=== PATIENT | male | born 1975 | race Caucasian/White ===

== ENCOUNTER 2016-06-01 18:21 | Emergency (ER) | payer MEDICAID, OTHER ==
[~2016-06-01] VITALS: Ht 162.6 cm; Wt 98.0 kg
[2016-06-01 18:47] VITALS: Ht 162.6 cm; Wt 98.0 kg
[2016-06-01] MEDS ORDERED: FLUORESCEIN STRIP RIGHT EYE ONE (19:30)
[2016-06-01] MEDS ORDERED: TETRACAINE 0.5% 4 ML OPH RIGHT EYE ONE (19:30)
[2016-06-01] MEDS ORDERED: NAPH15DR OP (19:56)
[2016-06-01] MEDS ORDERED: ACET500C5 PO (19:56)
[2016-06-01] MEDS ORDERED: POLY10DR19 RIGHT EYE (19:56)
--- NOTE | 2016-06-01 20:25 | ERD ---
ER Documentation Chief Complaint Date/Time DATE: 06/01/16 TIME: 20:18 Chief Complaint right eye pain w/ redness x 2 days HPI 40-year-old male with no significant past medical history presents the ED complaining of right eye pain and redness that started 2 days ago. States that it is slightly itchy. States that he has been taking Motrin without relief of his pain. States that he has been rubbing his eyes. Denies any cough, rhinorrhea, fever, chest pain, shortness of breath, wheezing, abdominal pain, nausea, vomiting, diarrhea. Denies any blurred vision, photophobia, headache, weakness, photophobia, vision loss. Denies any eye trauma. Denies any foreign body sensation or getting anything in his eyes. ROS All systems reviewed and are negative except as per history of present illness. Medications Home Meds Active Scripts Acetaminophen* (Tylophen*) 500 Mg Capsule, 1 CAP PO Q6H Y for PAIN AND OR ELEVATED TEMP, #20 CAP Prov:MIL MANRIQUEZ PA-C 06/01/16 Naphazoline Hcl/Phenir Mal (Naphcon-A Eye Drops) 15 Ml Drops, 15 ML OP BID, #1 BOTTLE Prov:MIL MANRIQUEZ PA-C 06/01/16 Polymyxin B Sulfate-TMP* (Polymyxin B-TMP Eye Drops*) 10 Ml Drops, 1 DROP RIGHT EYE QID for 7 Days, EA Prov:MIL MANRIQUEZ PA-C 06/01/16 Allergies Allergies: Coded Allergies: No Known Allergy (Unverified , 06/01/16) PMhx/Soc Medical and Surgical Hx: pt denies Medical Hx, pt denies Surgical Hx History of Surgery: No Anesthesia Reaction: No Hx Neurological Disorder: No Hx Respiratory Disorders: No Hx Cardiac Disorders: No Hx Psychiatric Problems: No Hx Miscellaneous Medical Probl: No (DENIES MEDICAL AND SURGICAL HX.) Hx Alcohol Use: No Hx Substance Use: No Hx Tobacco Use: No Smoking Status: Never smoker Physical Exam Vitals Vital Signs Date Time Temp Pulse Resp B/P Pulse Ox O2 Delivery O2 Flow Rate FiO2 06/01/16 18:47 97.8 87 20 139/79 100 Physical Exam Const: Krm-apr-akhjvgpyq, well-nourished. In no acute distress. Head: Atraumatic, normocephalic Eyes: Right injected conjunctivae. Left conjunctiva without injection. No purulent discharge. PERRLA. EOMI ENT: Normal external ear. Ear canal without erythema. Tympanic membrane pearly chua without effusion or bulging. Nasal canal clear with normal turbinates. Moist oropharynx without tonsillar exudates. Non-erythematous pharynx. Uvula midline. No drooling. No trismus. Neck: No cervical midline tenderness. Full range of motion. No meningismus. No cervical lymphadenopathy. No JVD. Resp: Clear to auscultation bilaterally. No wheezing, rhonchi, rales, or crackles. No accessory muscle use. No retractions. Cardio: Regular rate and rhythm. No murmurs, rubs or gallops. Abd: Soft, non tender, non distended. Normal bowel sounds. No palpable masses. No rebound tenderness. No guarding. Negative McBurney's Point. Negative Lopez's Sign. Skin: Normal skin turgor. No petechiae or rashes Back: No midline tenderness. No CVA tenderness. Ext: No cyanosis, or edema. Distal pulses intact bilaterally. Neur: Awake and alert. Normal gait. Normal coordination. Cranial Nerves II- VII intact. Normal finger to nose. Muscle strength 5/5. Sensation intact. Psych: Normal Mood and Affect Results 24 hrs Current Medications Medications (Trade) Dose Ordered Sig/Emi Route PRN Reason Start Time Stop Time Status Last Admin Dose Admin Tetracaine HCl (Tetracaine 0.5% Steri-Unit Gianna) 1 drop ONCE ONCE RIGHT EYE 06/01/16 19:30 06/01/16 19:31 DC Fluorescein Sodium (Hdcue-K-Pxjiq) 1 strip ONCE ONCE RIGHT EYE 06/01/16 19:30 06/01/16 19:31 DC Procedures/MDM This is a 40-year-old male with no significant past medical history presents the ED complaining of right eye pain and redness that started 2 days ago. Patient is afebrile nontoxic appearing. Patient has normal vital signs. A visual acuity, fluorescein stain with Ortiz lamp, Rebel-Pen pressure reading was performed here in the ED to further evaluate patient. Eye Exam w/ Wood's lamp: Visual Acuity: Left 20/25 right 20/25 bilateral 20/20 Visual Denney: Intact in all four quadrants bilaterally Lac ducts/glands: No swelling Lids w/ evertion: Normal, no foreign body Conj/Weston: Clear, negative Fluorescein/Yosef's Anterior Chamber: Clear Tonopen readings: [Left 20 mmHg right 18 mmHg Retina exam: No obvious abnormality Patient's ocular symptoms have stabilized while they have been evaluated in the department and are appropriate for outpatient work up. Patient's symptoms could likely be due to conjunctivitis however patient was strictly instructed to follow-up with an harness cutter within 24 hours. Low suspicion for ruptured globe, retinal detachment, periorbital cellulitis, acute angle closure glaucoma, deep space infection, iritis, traumatic hyphema, conjunctivitis, subconjunctival hemorrhage, corneal abrasion, corneal ulcer, pterygium, hypopyon, blepharitis, hordeolum, chalazion, or other emergent conditions. This case was discussed with my supervising physician, Dr. Watters agreed with the management and discharge plan. Discharge medications: Tylenol, Naphcon eyedrops, Polytrim Follow up with primary care physician in 1-2 days. Instructed patient to return to the ED sooner for any worsening symptoms. Patient's questions were answered. Patient understood and agreed with discharge plan. Patient discharged stable. Departure Diagnosis: Primary Impression: Pain, eye, right Condition: Stable Patient Instructions: Understanding Red Eye: Causes Referrals: COMMUNITY CLINICS YOU HAVE RECEIVED A MEDICAL SCREENING EXAM AND THE RESULTS INDICATE THAT YOU DO NOT HAVE A CONDITION THAT REQUIRES URGENT TREATMENT IN THE EMERGENCY DEPARTMENT. FURTHER EVALUATION AND TREATMENT OF YOUR CONDITION CAN WAIT UNTIL YOU ARE SEEN IN YOUR DOCTORS OFFICE WITHIN THE NEXT 1-2 DAYS. IT IS YOUR RESPONSIBILITY TO MAKE AN APPOINTMENT FOR FOLOW-UP CARE. IF YOU HAVE A PRIMARY DOCTOR --you should call your primary doctor and schedule an appointment IF YOU DO NOT HAVE A PRIMARY DOCTOR YOU CAN CALL OUR PHYSICIAN REFERRAL HOTLINE AT IF YOU CAN NOT AFFORD TO SEE A PHYSICIAN YOU CAN CHOSE FROM THE FOLLOWING [facility] [address] [facility] [address] [facility] [address] [facility] [address] [facility] [address] [facility]. [facility] [address] [facility]. [facility] YOU HAVE RECEIVED A MEDICAL SCREENING EXAM AND THE RESULTS INDICATE THAT YOU DO NOT HAVE A CONDITION THAT REQUIRES URGENT TREATMENT IN THE EMERGENCY DEPARTMENT. FURTHER EVALUATION AND TREATMENT OF YOUR CONDITION CAN WAIT UNTIL YOU ARE SEEN IN YOUR DOCTORS OFFICE WITHIN THE NEXT 1-2 DAYS. IT IS YOUR RESPONSIBILITY TO MAKE AN APPOINTMENT FOR FOLOW-UP CARE. IF YOU HAVE A PRIMARY DOCTOR --you should call your primary doctor and schedule and appointment IF YOU DO NOT HAVE A PRIMARY DOCTOR YOU CAN CALL OUR PHYSICIAN REFERRAL HOTLINE AT . IF YOU CAN NOT AFFORD TO SEE A PHYSICIAN YOU CAN CHOSE FROM THE FOLLOWING [facility] INSTITUTIONS: [facility] [address] [place] [address] [facility] [address] [place] [address] [facility] + [facility] [address] [place] [address] [facility] Hours: Mon - Fri 9:00 AM - 5:00 PM Additional Instructions: Seguimiento con [employer] dentro de 24 horas. Regrese a estas instalaciones si no se mejora joel esperbamos o joel le dijimos. MIL MANRIQUEZ PA-C Jun 01, 2016 20:25
== END 2016-06-01 21:05 | disposition home or self-care (01) ==
LOC: FTE 18:21
DX: H57.11 Ocular pain, right eye (principal)
CPT/HCPCS: Z7502; Z7610; 99283

== ENCOUNTER 2016-07-20 01:16 | Emergency (ER) | payer MEDICAID ==
[~2016-07-20] VITALS: Ht 177.8 cm; Wt 102.0 kg
[~2016-07-20 01:16] MED LIST: ACET500C5 PO; NAPH15DR OP; POLY10DR19 RIGHT EYE
[2016-07-20 01:21] VITALS: Ht 177.8 cm; Wt 102.0 kg
--- NOTE | 2016-07-20 01:41 | ERA ---
ER Documentation Chief Complaint Date/Time DATE: 07/20/16 TIME: 01:41 Chief Complaint CHEST PRESSURE HPI The patient is a 40-year-old male, presenting to the ER because of substernal chest pressure for 1 day. He has similar symptoms previously, the chest pressure is worse with movement. He denies chest pain with exertion or vomiting or diaphoresis. He denies fever, chills, neck pain, abdominal pain, vomiting, dysuria, diarrhea. He does not smoke nor drink or use illicit drug Past medical history/surgical history: None ROS All systems reviewed and are negative except as per history of present illness. Medications Home Meds Active Scripts Acetaminophen* (Tylophen*) 500 Mg Capsule, 1 CAP PO Q6H Y for PAIN AND OR ELEVATED TEMP, #20 CAP Prov:MIL MANRIQUEZ PA-C 06/01/16 Naphazoline Hcl/Phenir Mal (Naphcon-A Eye Drops) 15 Ml Drops, 15 ML OP BID, #1 BOTTLE Prov:MIL MANRIQUEZ PA-C 06/01/16 Polymyxin B Sulfate-TMP* (Polymyxin B-TMP Eye Drops*) 10 Ml Drops, 1 DROP RIGHT EYE QID for 7 Days, EA Prov:MIL MANRIQUEZ PA-C 06/01/16 Allergies Allergies: Coded Allergies: No Known Allergy (Unverified , 06/01/16) PMhx/Soc History of Surgery: No Anesthesia Reaction: No Hx Neurological Disorder: No Hx Respiratory Disorders: No Hx Cardiac Disorders: No Hx Psychiatric Problems: No Hx Miscellaneous Medical Probl: No (DENIES MEDICAL AND SURGICAL HX.) Hx Alcohol Use: No Hx Substance Use: No Hx Tobacco Use: No Physical Exam Vitals Vital Signs Date Time Temp Pulse Resp B/P Pulse Ox O2 Delivery O2 Flow Rate FiO2 07/20/16 04:00 64 12 115/81 98 Room Air 07/20/16 03:00 68 16 113/76 100 Room Air 07/20/16 01:59 71 19 118/68 100 Room Air 07/20/16 01:21 97.0 67 18 152/97 98 Physical Exam Const: No acute distress. Head: Atraumatic. Eyes: Normal Conjunctiva. ENT: Normal External Ears, Nose and Mouth. Neck: Full range of motion. No meningismus. Resp: Clear to auscultation bilaterally. Cardio: Regular rate and rhythm, no murmurs. Abd: Soft, non distended, normal bowel sounds, non tender. Skin: No petechiae or rashes. Back: No midline or flank tenderness. Ext: No cyanosis, or edema. Neur: Awake and alert. No focal deficit Psych: Normal Mood and Affect. Result Diagram: 07/20/16 0200 07/20/16 0200 Results 24 hrs Laboratory Tests Test 07/20/16 02:00 07/20/16 02:10 White Blood Count 7.510^3/ul Red Blood Count 5.2110^6/ul Hemoglobin 16.0g/dl Hematocrit 45.5% Mean Corpuscular Volume 87.3fl Mean Corpuscular Hemoglobin 30.7pg Mean Corpuscular Hemoglobin Concent 35.2g/dl Red Cell Distribution Width 11.9% Platelet Count 54915^3/UL Mean Platelet Volume 9.9fl Neutrophils % 47.9% Lymphocytes % 39.5% Monocytes % 8.5% Eosinophils % 3.3% Basophils % 0.4% Nucleated Red Blood Cells % 0.0/100WBC Neutrophils # 3.610^3/ul Lymphocytes # 3.010^3/ul Monocytes # 0.610^3/ul Eosinophils # 0.310^3/ul Basophils # 0.010^3/ul Nucleated Red Blood Cells # 0.010^3/ul Prothrombin Time 11.9Sec Prothrombin Time Ratio 0.9 INR International Normalized Ratio 0.88 Activated Partial Thromboplast Time 30.6Sec D-Dimer 285.86ng/ml D-Dimer Comment Sodium Level 139mmol/L Potassium Level 3.4mmol/L Chloride Level 103mmol/L Carbon Dioxide Level 25mmol/L Anion Gap 14 Blood Urea Nitrogen 10mg/dl Creatinine 0.68mg/dl Glucose Level 106mg/dl Calcium Level 8.9mg/dl Troponin I < 0.012ng/ml Ethyl Alcohol Level < 10.0mg/dl Urine Opiates Screen NEGATIVE Urine Barbiturates NEGATIVE Urine Amphetamines Screen NEGATIVE Urine Benzodiazepines Screen NEGATIVE Urine Cocaine Screen NEGATIVE Urine Cannabinoids NEGATIVE Current Medications Medications (Trade) Dose Ordered Sig/Emi Route PRN Reason Start Time Stop Time Status Last Admin Dose Admin Ketorolac Tromethamine (Toradol) 30 mg ONCE STAT IV 07/20/16 01:45 07/20/16 01:47 DC 07/20/16 02:07 Pantoprazole (Protonix Iv) 40 mg ONCE ONCE IV 07/20/16 02:00 07/20/16 02:01 DC 07/20/16 02:07 Potassium Chloride (Klor-Con 20) 20 meq ONCE ONCE PO 07/20/16 03:32 07/20/16 03:33 DC Procedures/[place] [address] Radiology Main Line: [phone] DIAGNOSTIC IMAGING REPORT Patient: MICHELLE PORRAS : 1975 Age: 40 Sex: M MR #: [id number] DOS: 07/20/16 0145 Ordering MD: AMISHA AG MD Location: E/R Room/Bed: PROCEDURE: XR Chest. CLINICAL INDICATION: Chest Pain. TECHNIQUE: Portable single view of the chest COMPARISON: None. FINDINGS: The cardiomediastinal silhouette appears within normal limits. The lungs are clear and no pleural effusion or significant edema is seen. No bony abnormality is seen. IMPRESSION: No definite acute pulmonary disease. RPTAT: HLBE Physician Sheila Date Time Electronically viewed and signed by Yola Cruz Physician on 07/20/2016 03 :10 LE/ CC: AMISHA AG MD EKG: At 1:36 AM read by emergency physician Rate/Rhythm: Normal Sinus Rhythm 71 beats/min QRS, ST, T-waves: No ST elevation, no T inversion Impression: Normal EKG EKG: At 2:07 AM read by emergency physician Rate/Rhythm: Normal Sinus Rhythm 72 beats/min QRS, ST, T-waves: No ST elevation, no T inversion Impression: Normal EKG MEDICAL MAKING DECISION: The patient is a 40-year-old male, presenting to the ER because of acute chest pain of unclear etiology. He was treated with Toradol 30 minute IV and Protonix 40 mg IV with good response The differential diagnoses considered include but are not limited to acute coronary syndrome, acute myocardial infarction, pericarditis, pulmonary embolism , aortic dissection, pneumonia, pleural effusion, pneumothorax, GERD, chest wall pain. Departure Diagnosis: Primary Impression: Chest pain Condition: Good Comments The patient presents with chest pain and I considered pulmonary embolism, aortic dissection, pneumothorax among other diagnoses. Evaluation for acute coronary syndrome was performed. The HEART score (www.mdcalc.com) was utilized for risk stratification and found to be < = 3. Repeat EKG and troponin @ 3 hours were unchanged. Based on this evaluation the patients risk of major adverse cardiac events is <1%. Shared decision making occurred with patient and the decision has been made to discharge the patient for outpatient evaluation and functional study within 72 hours. AMISHA AG MD July 20, 2016 01:41
[2016-07-20] MEDS ORDERED: KETOROLAC 30 MG INJ IV STA (01:45)
[2016-07-20] MEDS ORDERED: PANTOPRAZOLE 40 MG INJ IV ONE (02:00)
[2016-07-20 02:17] LABS: ADD SCAN DIFF NO
[2016-07-20 02:21] LABS: BASOPHILS % 0.4 % (0.0-2.0); EOSINOPHILS # 0.3 10^3/ul (0.0-0.5); EOSINOPHILS % 3.3 % (0.0-7.0); HEMATOCRIT 45.5 % (42.0-52.0); LYMPHOCYTES % 39.5 % (15.0-51.0); MEAN CORPUSCULAR HEMOGLOBIN 30.7 pg (29.0-33.0); MEAN CORPUSCULAR HGB CONC 35.2 g/dl (32.0-37.0); MEAN CORPUSCULAR VOLUME 87.3 fl (82.0-101.0); MEAN PLATELET VOLUME 9.9 fl (7.4-10.4); MONOCYTE # 0.6 10^3/ul (0.3-0.9); MONOCYTES % 8.5 % (0.0-11.0); NEUTROPHIL # 3.6 10^3/ul (1.6-7.5); NEUTROPHILS % 47.9 % (39.0-77.0); PLATELET COUNT 249 10^3/UL (140-415); RED BLOOD COUNT 5.21 10^6/ul (4.70-6.10); RED CELL DISTRIBUTION WIDTH 11.9 % (11.5-14.5); WHITE BLOOD COUNT 7.5 10^3/ul (4.8-10.8)
[2016-07-20 02:38] LABS: INR 0.88; PROTIME 11.9 Sec (12.2-14.2); PT RATIO 0.9
[2016-07-20 02:39] LABS: CHLORIDE 103 mmol/L (97-110); PARTIAL THROMBOPLASTIN TIME 30.6 Sec (25.0-35.0); POTASSIUM 3.4 mmol/L (3.5-5.1); SODIUM 139 mmol/L (135-144)
[2016-07-20 02:41] LABS: D-DIMER 285.86 ng/ml (<460)
[2016-07-20 02:42] LABS: ANION GAP 14 (8-16); CARBON DIOXIDE 25 mmol/L (21-31); CREATININE 0.68 mg/dl (0.61-1.24)
[2016-07-20 02:43] LABS: BLOOD UREA NITROGEN 10 mg/dl (7-20); CALCIUM 8.9 mg/dl (8.4-10.2); GLUCOSE 106 mg/dl (70-220)
[2016-07-20 02:48] LABS: ETHANOL < 10.0 mg/dl
[2016-07-20 02:55] LABS: TROPONIN-I < 0.012 ng/ml (0.00-0.12)
--- NOTE | 2016-07-20 03:11 | RADRPT ---
PROCEDURE: XR Chest. CLINICAL INDICATION: Chest Pain. TECHNIQUE: Portable single view of the chest COMPARISON: None. FINDINGS: The cardiomediastinal silhouette appears within normal limits. The lungs are clear and no pleural e ffusion or significant edema is seen. No bony abnormality is seen. IMPRESSION: No definite acute pulmonary disease. RPTAT: HLBE Yola Cruz Physician Date Time Electronically viewed and signed by Yola Cruz Physician on 07/20/2016 03:10 LE/
[2016-07-20 03:13] LABS: BARBITURATES NEGATIVE (NEGATIVE); CANNABINOIDS NEGATIVE (NEGATIVE); COCAINE NEGATIVE (NEGATIVE); OPIATES NEGATIVE (NEGATIVE)
[2016-07-20 03:28] LABS: BENZODIAZEPINES NEGATIVE (NEGATIVE)
[2016-07-20] MEDS ORDERED: POTASSIUM CHLORIDE (SR) 20 MEQ TAB PO ONE (03:32)
[2016-07-20] MEDS ORDERED: IBUP-1542 PO (05:12)
[2016-07-20 05:34] VITALS: BP 101/68; PULSE 74; RESP 17
== END 2016-07-20 05:48 | disposition home or self-care (01) ==
LOC: E/R 01:16
DX: R07.2 Precordial pain (principal); R40.2252 Coma scale, best verbal response, oriented, at arrival to emergency department; R07.9 Chest pain, unspecified; R40.2142 Coma scale, eyes open, spontaneous, at arrival to emergency department; R40.2362 Coma scale, best motor response, obeys commands, at arrival to emergency department
CPT/HCPCS: 71010; 80048; 80306; 80307; 84484; 85025; 85378; 85610; 85730; 93005; C9113; J1885; Z7610; 36415; 96374; 96375

== ENCOUNTER 2016-08-17 18:05 | Emergency (ER) | payer MEDICAID ==
[~2016-08-17] VITALS: Ht 167.6 cm; Wt 99.5 kg
[~2016-08-17 18:05] MED LIST changes: +IBUP-1542 PO
[2016-08-17 18:16] VITALS: Ht 167.6 cm; Wt 99.5 kg
--- NOTE | 2016-08-17 18:43 | ERD ---
ER Documentation Chief Complaint Date/Time DATE: 08/17/16 TIME: 18:43 Chief Complaint Complains of fever x 3 weeks HPI 41-year-old male who presented emergency department for productive cough and intermittent fever for about 3 weeks. He complains of right upper back pain that is described as achy nonradiating. Stated that his right upper back pain is worse whenever he cough. Denies headache, loss of consciousness, dizziness, blurry vision, changes in vision, photophobia, facial pain, ear pain, throat pain, difficulty swallowing, neck pain, shoulder pain, chest pain, hemoptysis, abdominal pain, loss of appetite, nausea, vomiting, hematochezia, diarrhea, constipation, urinary symptoms, bladder and bowel incontinences, extremity weakness, extremity tenderness, numbness or tingling sensation, difficulty walking, recent travel, recent exposure to illness, recent antibiotic use in the last 3 months. Allergy: NKDA. PMH: Denies. Medications: Denies. Surgery: Denies. Family history: Denies. Primary Social History: Denies. Denies smoking, use of alcohol, use of illegal drugs. ROS All systems reviewed and are negative except as per history of present illness. Medications Home Meds Active Scripts Albuterol Sulfate* (Proair HFA*) 8.5 Gm Hfa.aer.ad, 2 PUFF INH Q4, #1 INHALER Prov:JASMINILATREEULISES F 08/17/16 Ibuprofen* (Motrin*) 800 Mg Tab, 800 MG PO Q8 Y for PAIN AND OR ELEVATED TEMP, # 30 TAB Prov:JASMINILATREEFRANCESCAPA F 08/17/16 Acetaminophen* (Tylophen*) 500 Mg Capsule, 1 CAP PO Q6H Y for PAIN AND OR ELEVATED TEMP, #20 CAP Prov:PASILABANULISES F 08/17/16 Azithromycin* (Zithromax*) 250 Mg Tablet, 250 MG PO .ZPACK DIRECTED, #6 TAB TAKE 500 MG (2 TABS) THE FIRST DAY THEN 250 MG (1 TAB) DAYS 2-5 Prov:JASMINILAFRANCESCA LEAVITTAR F 08/17/16 Ibuprofen* (Motrin*) 600 Mg Tab, 600 MG PO Q6H Y for PAIN AND OR ELEVATED TEMP, #30 TAB Prov:AMISHA AG MD 07/20/16 Acetaminophen* (Tylophen*) 500 Mg Capsule, 1 CAP PO Q6H Y for PAIN AND OR ELEVATED TEMP, #20 CAP Prov:MIL MANRIQUEZ JB 06/01/16 Naphazoline Hcl/Phenir Mal (Naphcon-A Eye Drops) 15 Ml Drops, 15 ML OP BID, #1 BOTTLE Prov:MIL MANRIQUEZ JB 06/01/16 Polymyxin B Sulfate-TMP* (Polymyxin B-TMP Eye Drops*) 10 Ml Drops, 1 DROP RIGHT EYE QID for 7 Days, EA Prov:MIL MANRIQUEZ JB 06/01/16 Allergies Allergies: Coded Allergies: No Known Allergy (Unverified , 06/01/16) PMhx/Soc Medical and Surgical Hx: pt denies Medical Hx, pt denies Surgical Hx History of Surgery: No Anesthesia Reaction: No Hx Neurological Disorder: No Hx Respiratory Disorders: No Hx Cardiac Disorders: No Hx Psychiatric Problems: No Hx Miscellaneous Medical Probl: No Hx Alcohol Use: No Hx Substance Use: No Hx Tobacco Use: No (quit) Smoking Status: Former smoker FmHx Family History: coronary disease Physical Exam Vitals Vital Signs Date Time Temp Pulse Resp B/P Pulse Ox O2 Delivery O2 Flow Rate FiO2 08/17/16 21:50 98.7 08/17/16 21:22 98.5 94 20 125/82 97 Room Air 08/17/16 20:13 74 22 97 21 08/17/16 18:16 100.6 102 20 132/63 93 Physical Exam CONSTITUTIONAL: Well-appearing; well-nourished; in no apparent distress. HEAD: Normocephalic; atraumatic. EYES: Conjunctiva clear, sclera non-icteric, EOM intact. PERRL Ears: Hearing intact. EACs clear, TMs non-bulging, non-inflamed, translucent & mobile, ossicles normal appearance, No obstructions, no erythema, no discharges Nose: No obstructions. No polyps. No external lesions. Mucosa non-inflamed. No external lesions, septum and turbinates normal. No rhinorrhea. No discharges. Frontal sinus is non-tender to palpation. Maxillary sinus is non-tender to palpation. MOUTH: Moist mucous membranes, no lesion, no obstructions, no vesicles, no thrush, patent airway Throat: Uvula in midline. Right tonsil is +1 with no erythema, no exudate. Left tonsil is +1 with no erythema, no exudate. Tolerating secretions well. Good gag reflex. Patent airway. Neck: Supple, without lesions, bruits, or adenopathy. No mass. Thyroid non- enlarged and non-tender to palpation. CHEST: Symmetrical chest. Respirations even and not labored. No retractions noted. CARDIOVASCULAR: Normal S1, S2. RRR. No murmurs, gallops. RESPIRATORY: Normal chest excursion with respiration; breath sounds clear and equal bilaterally; no wheezes, rhonchi, or rales. Breathing even and unlabored. Speaking in clear, full, and complete sentences w/ ease. ABDOMEN: Normal bowel sounds normal. Soft, round, non-distended, non-guarding, no tenderness, no rebound, no organomegaly, no masses, no pulsating abdominal mass. No hernia. No peritoneal signs. : No CVA tenderness. BACK: Symmetrical shoulder. Spine is midline without deformity, tenderness. No evidence of trauma or deformity. PELVIS: Stable pelvis. No evidence of trauma or deformity. MUSCULOSKELETAL: Normal gait and station. No misalignment, asymmetry, crepitation, defects, tenderness, masses, effusions, decreased range of motion, instability, atrophy or abnormal strength or tone in the head, neck, spine, ribs , pelvis or extremities. No calf tenderness. NEUROVASCULAR: Distal pulses are present. Pedal pulse are present, equal, and normal. Capillary refills are < 2 seconds. NEUROLOGIC: Alert and oriented x4. Speaks full and clear sentences. Cranial Nerves II-XII normal. Sensation to pain, touch, and proprioception normal. Grossly unremarkable. No neurologic deficits. Romberg test is negative. PSYCHOLOGICAL: The patients mood and manner are appropriate. No hallucinations , delusions. Not SI. Not HI. Has the capacity to decide for self SKIN: Normal for age and ethnicity; warm; dry; good turgor; no apparent lesions or exudates. No rashes, hives, discoloration. Intact. Results 24 hrs Current Medications Medications (Trade) Dose Ordered Sig/Emi Route PRN Reason Start Time Stop Time Status Last Admin Dose Admin Acetaminophen (Tylenol Tab) 500 mg ONCE STAT PO 08/17/16 18:49 08/17/16 18:50 DC 08/17/16 18:56 Ibuprofen (Motrin) 800 mg ONCE ONCE PO 08/17/16 19:00 08/17/16 19:01 DC 08/17/16 18:56 Albuterol (Proventil 0.083% (Neb)) 5 mg ONCE STAT HHN 08/17/16 19:38 08/17/16 19:39 DC 08/17/16 20:12 Ipratropium [place] (Atrovent 0.02% (Neb)) 0.5 mg ONCE ONCE HHN 08/17/16 20:00 08/17/16 20:01 DC 08/17/16 20:12 Ceftriaxone Sodium (Rocephin) 1 gm ONCE ONCE IM 08/17/16 20:00 08/17/16 20:01 DC 08/17/16 19:50 Dexamethasone (Decadron) 10 mg ONCE ONCE PO 08/17/16 20:00 08/17/16 20:01 DC 08/17/16 19:50 Procedures/MDM Examination: Please see physical examination. Disease process, medical treatment was explained to the patient and family member. They verbalized understanding and agreed with the diagnostic tests, medical treatment, and follow-up care. Radiology: Chest x-ray Impression: Thickening of the minor fissure could be the result of a right pleural effusion or pleural scarring. No discrete infiltrate is identified. Blood works unremarkable except Treatment: Tylenol. Motrin. Albuterol and Atrovent. Ceftriaxone 1 g IM. Decadron 10 mg p.o. Re-evaluation: Denies headache, dizziness, blurry vision, neck pain, shoulder pain, chest pain, back pain, abdominal pain, nausea. No episode of emesis in the emergency department. Respirations even and unlabored. Lung sounds are clear to auscultation. There is no abdominal tenderness on light and deep palpation. No CVA tenderness. Stated that he feels much better this time. Consultation: None. Differential diagnosis: Pneumonia versus bronchitis versus cough Medical decision m[age]-year-old male who presented emergency department for productive cough cough and intermittent fever for about 3 weeks. He complains of right upper back pain that is described as achy nonradiating. Stated that his right upper back pain is worse whenever he coughs. Patient's complaint, patient's history about his complaint, my physical findings, diagnostic test results, my reevaluation are consistent my final diagnosis of bronchitis. Case was discussed with supervising physician, Dr. Masood Watters who agreed with my medical decision making to discharge patient with a final diagnosis of bronchitis Medications prescribed are the following: Azithromycin. Pro-air. Tylenol. Patient and family member are made aware of the side effects and adverse reactions of the medications prescribed. Instructed on when to seek emergent and medical attention in case allergic/anaphylactic reactions or severe side effects and or adverse reactions to medications. Patient and family member verbalized understanding. Patient instructed Instructed to follow-up with his PCP in 24-48 hours. Instructed to Call 911 for chest pain, shortness of breath. Advised to come back here in ED as soon as possible for severity of symptoms which includes but not limited to: any new symptoms; shortness of breath/difficulty of breathing; cardiovascular changes; severe gastrointestinal symptoms; signs and symptoms of bleeding and or infection; signs of compartment syndrome/neurovascular changes; neurological changes/deficits. Patient and family member verbalized understanding. Upon discharge, patient is alert and oriented x 4, speaks full and clear sentences, denies pain, has no neurological deficits, has no neurovascular deficits, difficulty of breathing. Breathing even and unlabored. Lung sounds are clear to auscultation. Not in distress. Appears comfortable. Ambulatory with steady gait. Appears satisfied with care provided here in ED. Departure Diagnosis: Primary Impression: Bronchitis Additional Impression: Fever Condition: Fair Additional Instructions: Instructed to follow-up with his PCP in 24-48 hours. Instructed to Call 911 for chest pain, shortness of breath. Advised to come back here in ED as soon as possible for severity of symptoms which includes but not limited to: any new symptoms; shortness of breath/difficulty of breathing; cardiovascular changes; severe gastrointestinal symptoms; signs and symptoms of bleeding and or infection; signs of compartment syndrome/neurovascular changes; neurological changes/deficits. Patient and family member verbalized understanding. ULIESS RUDOLPH Aug 17, 2016 18:43
[2016-08-17] MEDS ORDERED: ACETAMINOPHEN 500 MG TAB PO STA (18:49)
[2016-08-17] MEDS ORDERED: IBUPROFEN 800 MG TAB PO ONE (19:00)
[2016-08-17] MEDS ORDERED: ALBUTEROL 0.083% (NEB) 2.5 MG/3 ML AMP HHN STA (19:38)
--- NOTE | 2016-08-17 19:42 | RADRPT ---
PROCEDURE: XR Chest. CLINICAL INDICATION: Cough and fever. TECHNIQUE: PA and Lateral views of the chest were obtained. COMPARISON: No. FINDINGS: The soft tissues are normal. The bony elements are normal. The heart, cardiomediastinal silhouette and hilar structures are normal. The pulmonary vasculature is normal. There is a left-sided aorta. The lungs are clear. There is thickening of the minor fissure which could be the result of a pleura l effusion. The costophrenic angles are normal. IMPRESSION: 1. Thickening of the minor fissure could be the result of a right pleural effusion or pleural scarri ng. No discrete infiltrate is identified. RPTAT:AAJJ Physician Per Date Time Electronically viewed and signed by Physician Per on 08/17/2016 19:41 B[place]O/
[2016-08-17] MEDS ORDERED: CEFTRIAXONE 1 GM INJ IM ONE (20:00)
[2016-08-17] MEDS ORDERED: DEXAMETHASONE 10 MG/ML 1 ML INJ PO ONE (20:00)
[2016-08-17] MEDS ORDERED: IPRATROPIUM (NEB) 0.5 MG/2.5 ML AMP HHN ONE (20:00)
[2016-08-17 21:22] VITALS: BP 125/82; PULSE 94; RESP 20
[2016-08-17] MEDS ORDERED: AZIT250T94 PO (21:36)
[2016-08-17] MEDS ORDERED: ACET500C5 PO (21:36)
[2016-08-17] MEDS ORDERED: IBUP800T25 PO (21:37)
[2016-08-17] MEDS ORDERED: ALBU8.5H3 INH (21:37)
[2016-08-17 21:50] VITALS: TEMP 98.7
== END 2016-08-17 21:50 | disposition home or self-care (01) ==
LOC: FTE 18:05
DX: J20.9 Acute bronchitis, unspecified (principal); R05 Cough; Z87.891 Personal history of nicotine dependence
CPT/HCPCS: 71020; 94664; J0696; J1100; Z7610; 96372

== ENCOUNTER 2017-07-07 23:49 | Emergency (ER) | END 2017-07-08 04:00 | disposition home or self-care (01) ==

== ENCOUNTER 2017-08-27 16:00 | Emergency (ER) | END 2017-08-27 18:02 | disposition home or self-care (01) ==